=== PATIENT | male | born 1945 ===

== ENCOUNTER → 2021-08-29 08:00 | Outpatient (CLI) | payer OTHER ==
[~2021-08-29] VITALS: Ht 165.1 cm; Wt 54.9 kg
== END | disposition home or self-care (01) ==
LOC: LAB 08:00 → ADM 12:45 → SURH 09-01 07:00 → CIR.AMB 09-01 12:45 → EDSTATUS 09-01 12:45 → SURH 09-01 12:45
PROVIDERS: ATTEND Surgery
DX: Z01.810 Encounter for preprocedural cardiovascular examination (principal); K62.5 Hemorrhage of anus and rectum; K63.5 Polyp of colon

== ENCOUNTER 2021-09-26 08:24 | Inpatient (IN) | payer OTHER ==
[~2021-09-26] VITALS: Ht 165.1 cm; Wt 55.3 kg
== END 2021-10-04 19:23 | disposition home or self-care (01) | DRG 330 ==
LOC: O/R 09-29 06:12 → SURH 09-29 07:00 → SURG 09-29 15:49
PROVIDERS: ADMIT Surgery; ATTEND Surgery
PROC: 0DBP4ZZ Excision of Rectum, Percutaneous Endoscopic Approach (ICD-10-PCS; 2021-09-29)
PROC: 07BB4ZZ Excision of Mesenteric Lymphatic, Percutaneous Endoscopic Approach (ICD-10-PCS; 2021-09-29)
PROC: 0DJD8ZZ Inspection of Lower Intestinal Tract, Via Natural or Artificial Opening Endoscopic (ICD-10-PCS; 2021-09-29)
PROC: 0DTN4ZZ Resection of Sigmoid Colon, Percutaneous Endoscopic Approach (ICD-10-PCS; principal; 2021-09-29 10:40)
DX: D12.5 Benign neoplasm of sigmoid colon (principal); K62.5 Hemorrhage of anus and rectum; K57.30 Diverticulosis of large intestine without perforation or abscess without bleeding; K62.1 Rectal polyp; R59.0 Localized enlarged lymph nodes

== ENCOUNTER 2022-09-30 12:21 | Emergency (ER) | payer OTHER ==
[~2022-09-30] VITALS: Ht 165.1 cm; Wt 72.6 kg
== END 2022-09-30 21:27 | disposition designated cancer center or children's hospital (05) ==
LOC: ER 12:21
DX: M62.81 Muscle weakness (generalized) (principal); Z20.822 Contact with and (suspected) exposure to COVID-19; R22.0 Localized swelling, mass and lump, head; R47.81 Slurred speech
CPT/HCPCS: 70545